=== PATIENT | female | born 1935 | race Caucasian/White ===

== ENCOUNTER 2017-02-20 13:17 | Emergency (ER) | payer MEDICARE, BC ==
--- NOTE | 2017-02-21 16:21 | ER ---
ADMIT: 02/20/2017 RM/LOC: ER [facility] MR#: [id number] [facility] [address] [place] [id number] [address] [facility] [place] [address] Emergency Room Report SEX: F AGE: 81 : 1935 DATE: 02/20/2017 ADDENDUM: CHIEF COMPLAINT: Syncopal like episode. HISTORY OF PRESENT ILLNESS: This is an 81-year-old female who said she was going to sit on a picnic bench. When going to sit down, her foot got caught and she fell backwards off the bench, hit her head. She got up immediately, but then when she got up, she had a syncopal episode while sitting and fell forward onto the picnic table. COURSE IN THE EMERGENCY ROOM: EKG, chest x-ray, CBC, cardiac enzymes, BMP was done. Overall findings; chest x-ray showed a questionable left-sided pleural effusion. She denies any shortness of breath, denies any chest pain, denies any cough. CBC was normal except for hemoglobin of 11.9, platelets 148. EKG showed sinus rhythm at a rate of 64, no ST elevation or depression. BMP was normal except for BUN of 35 and a creatinine of 1.3 and glucose of 154. Cardiac enzymes were all normal. Her GFR is 39. She was given a liter of fluids here, she feels significantly better, feels okay to go home. Orthostatics were normal. CLINICAL IMPRESSION: Contusion to head, secondary to fall. DISPOSITION: I did advise her to follow up with her primary care physician this week just to recheck to make sure that she is improving. PATIENCE Vernon / Elliott Durant MD / víctor JOB #: [id number] CC: Elliott Durnat MD, Attending Physician UNKNOWN, Family Physician
== END 2017-02-20 15:35 | disposition home or self-care (01) ==
LOC: ER 13:17
DX: S00.93XA Contusion of unspecified part of head, initial encounter (principal); J44.9 Chronic obstructive pulmonary disease, unspecified; Z86.73 Personal history of transient ischemic attack (TIA), and cerebral infarction without residual deficits; Z90.710 Acquired absence of both cervix and uterus; Z98.890 Other specified postprocedural states; Z86.12 Personal history of poliomyelitis; Z79.899 Other long term (current) drug therapy; Z88.0 Allergy status to penicillin; Z88.2 Allergy status to sulfonamides; W17.89XA Other fall from one level to another, initial encounter